=== PATIENT | male | born 1955 | race Caucasian/White ===

== ENCOUNTER 2021-08-03 10:21 | Outpatient (CLI) | payer SELFPAY ==
[2021-08-03 10:42] VITALS: BMI 38.7
[2021-08-03 11:24] VITALS: BP 123/78; PULSE 85; RESP 16; TEMP 36.5; O2SAT 95
[2021-08-03 12:24] VITALS: BP 124/84; PULSE 91; RESP 18; TEMP 37; O2SAT 95
== END 2021-08-03 10:22 | disposition home or self-care (01) ==
LOC: OPS 10:23
PROVIDERS: Family Provider Internal Medicine; PCP Internal Medicine; Visit Provider Nurse Practitioner Family
DX: U07.1 COVID-19 (principal)
CPT/HCPCS: 96365